=== PATIENT | female | born 1940 | race Caucasian/White ===

== ENCOUNTER → 2024-01-31 12:32 | Outpatient (REF) | payer MEDICARE, SELFPAY | LOC: PAVMRI 12:32 | PROVIDERS: ATTENDING PHYSICIAN Nurse Practitioner; FAMILY PHYSICIAN Nurse Practitioner Adult Health | DX: R74.8 Abnormal levels of other serum enzymes (principal); K70.30 Alcoholic cirrhosis of liver without ascites | CPT/HCPCS: 74183; A9581 ==

== ENCOUNTER → 2024-05-02 08:06 | Outpatient (REF) | payer MEDICARE, SELFPAY | LOC: PAVMRI 08:06 | PROVIDERS: ATTENDING PHYSICIAN Internal Medicine Transplant Hepatology; FAMILY PHYSICIAN Nurse Practitioner Adult Health; REFERRING PHYSICIAN Internal Medicine Gastroenterology | DX: R16.0 Hepatomegaly, not elsewhere classified (principal) | CPT/HCPCS: 74183; A9585 ==

== ENCOUNTER → 2024-11-12 13:16 | Outpatient (REF) | payer MEDICARE, SELFPAY | LOC: WDC 13:16 | PROVIDERS: ATTENDING PHYSICIAN Nurse Practitioner Adult Health | DX: Z12.31 Encounter for screening mammogram for malignant neoplasm of breast (principal) | CPT/HCPCS: 77062; 77063; 77066; 77067 ==

== ENCOUNTER → 2024-11-28 10:36 | Outpatient (REF) | payer MEDICARE, SELFPAY | LOC: PAVMRI 10:36 | PROVIDERS: ATTENDING PHYSICIAN Internal Medicine Gastroenterology; FAMILY PHYSICIAN Nurse Practitioner Adult Health | DX: C22.0 Liver cell carcinoma (principal) | CPT/HCPCS: 74183; A9585 ==

== ENCOUNTER → 2025-05-01 08:56 | Outpatient (REF) | payer MEDICARE, SELFPAY | LOC: RCS 08:56 | PROVIDERS: ATTENDING PHYSICIAN Internal Medicine Cardiovascular Disease; FAMILY PHYSICIAN Nurse Practitioner Adult Health | DX: I48.0 Paroxysmal atrial fibrillation (principal) | CPT/HCPCS: 93306 ==

== ENCOUNTER → 2025-05-27 07:48 | Outpatient (REF) | payer MEDICARE, SELFPAY | LOC: PAVMRI 07:48 | PROVIDERS: ATTENDING PHYSICIAN Internal Medicine Gastroenterology; FAMILY PHYSICIAN Nurse Practitioner Adult Health | DX: C22.0 Liver cell carcinoma (principal) | CPT/HCPCS: 74183; A9585 ==